=== PATIENT | female | born 1970 | race Caucasian/White ===

== ENCOUNTER 2017-07-04 11:27 | Emergency (ER) | payer SELFPAY ==
[2017-07-04 11:41] VITALS: O2SAT 100
[2017-07-04 12:03] VITALS: RESP 18
--- NOTE | 2017-07-04 12:04 | C.PDOC ---
History Of Present Illness 47-year-old female, PMHx includes Migraines, presents to the emergency department with complaint of headache. Patient states she has been experiencing nausea that is associated with several episodes of non-bloody/non-bilious vomiting and photophobia. Patient reports symptoms are similar to her prior migraines, but worse. She also notes a few episodes of watery non-bloody diarrhea over the past few days. Denies numbness/weakness, sensory changes, facial droop, change in speech, back pain, chest pain, or any other associated symptoms. No other complaints at this time. Time Seen by Provider: 07/04/17 12:03 Chief Complaint (Nursing): Headache History Per: Patient History/Exam Limitations: no limitations Onset/Duration Of Symptoms: Days Current Symptoms Are (Timing): Still Present Severity: Moderate Past Medical History Reviewed: Historical Data, Nursing Documentation, Vital Signs Vital Signs: Last Vital Signs Temp 97.6 F 07/04/17 12:00 Pulse 76 07/04/17 12:00 Resp 18 07/04/17 12:00 BP 111/74 07/04/17 12:00 Pulse Ox 100 07/04/17 16:06 - Medical History PMH: Migraine Family History: States: No Known Family Hx - Social History Hx Alcohol Use: No Hx Substance Use: No Review Of Systems Except As Marked, All Systems Reviewed And Found Negative. Cardiovascular: Negative for: Chest Pain Respiratory: Negative for: Cough, Shortness of Breath Gastrointestinal: Negative for: Nausea, Vomiting Musculoskeletal: Negative for: Neck Pain, Back Pain Skin: Negative for: Rash Neurological: Positive for: Headache. Negative for: Weakness, Numbness, Dizziness Physical Exam - Physical Exam Appears: Non-toxic, No Acute Distress Skin: Normal Color, Warm, Dry, No Rash Head: Atraumatic, Normacephalic Eye(s): bilateral: PERRL, EOMI, Other (Mild photophobia) Nose: Normal Oral Mucosa: Moist Lips: Normal Appearing Neck: Normal ROM, Supple Chest: Symmetrical Cardiovascular: Rhythm Regular, No Murmur Respiratory: Normal Breath Sounds, No Accessory Muscle Use Extremity: Normal ROM, No Deformity, No Swelling Neurological/Psych: Oriented x3, Normal Speech, Normal Cognition, Normal Cranial Nerves, Normal Motor, Normal Sensation, Other (No focal deficit) ED Course And Treatment - Laboratory Results Result Diagrams: 07/04/17 13:10 07/04/17 13:10 O2 Sat by Pulse Oximetry: 100 (RA) Pulse Ox Interpretation: Normal - CT Scan/US CT head Other Rad Studies (CT/US): Read By Radiologist, Radiology Report Reviewed CT/US Interpretation: Accession No. : [id number]. Patient Name / ID : KODY CALDERON / [id number]. Exam Date : 07/04/2017 14:31:23 ( Approved ). Study Comment : Sex / Age : F / 47Y. Creator : Patricia Quesada. Dictator : Henny Prasad MD. Medical Director : Glucose And Syrup Weigher : Henny Prasad MD. Approver2 : Report Date : 07/04/2017 15:03:42. My Comment : . PROCEDURE: CT HEAD WITHOUT CONTRAST. HISTORY: headache/vomiting. COMPARISON: None available. TECHNIQUE: Axial computed tomography images were obtained through the head/brain without intravenous contrast. Radiation dose: Total exam DLP = 839.59 mGy-cm. This CT exam was performed using one or more of the following dose reduction techniques: Automated exposure control, adjustment of the mA and/ or kV according to patient size, and/or use of iterative reconstruction technique. FINDINGS: Mild streak artifact limits evaluation of the brainstem. HEMORRHAGE: No intracranial hemorrhage. BRAIN: No mass effect or edema. The andujar-white matter differentiation appears intact. Please note that MRI with diffusion imaging is more sensitive in the detection of acute ischemic event. VENTRICLES: No hydrocephalus. CALVARIUM: Unremarkable. PARANASAL SINUSES: Mucosal thickening of the ethmoid air cells. The remainder of the visualized paranasal sinuses appear clear. MASTOID AIR CELLS: Unremarkable as visualized. No inflammatory changes. OTHER FINDINGS: None. IMPRESSION: No acute intracranial pathology identified. Additional findings as above. Progress Note: Bloodwork, CT Head, UA and Urine culture ordered and reviewed. Patient treated with Antivert, Reglan, Toradol and Zofran. On re-evaluation, Patient is resting comfortably, is tolerating PO, and no longer has headache. There is no neurologic deficit, photophobia, rash, fever, or nuchal rigidity. Patient was instructed to follow up with physician/clinic in 1-2 days. All questions answered, patient asked to return immediately for any new or worsening symptoms. Disposition - Disposition Referrals: [facility] [Outside] Disposition: HOME/ ROUTINE Disposition Time: 16:28 Condition: IMPROVED Additional Instructions: Follow up in Clinic within1-2 days. Return to ED if feel worse. Instructions: Migraine Headache (DC) Forms: [employer] (P[place]in[place]) - Clinical Impression Clinical Impression: Migraine - Scribe Statement The provider has reviewed the documentation as recorded by the Scribe (Delaney Santos) All medical record entries made by the Scribe were at my direction and personally dictated by me. I have reviewed the chart and agree that the record accurately reflects my personal performance of the history, physical exam, medical decision making, and the department course for this patient. I have also personally directed, reviewed, and agree with the discharge instructions and disposition.
[2017-07-04] MEDS ORDERED: Sodium Chloride 0.9% 1,000 ML IV ONE (13:02)
[2017-07-04 13:19] LABS: BASO % 0.6 % (0.0-2.0); EOS % 0.5 % (0.0-4.0); HEMOGLOBIN 11.5 g/dL (11.0-16.0); LYMPH # 0.7 K/uL (1.0-4.3); LYMPH % 11.5 % (20.0-40.0); MEAN CELL VOLUME 80.4 fL (81.0-99.0); MEAN CORPUSCULAR HEMOGLOBIN 26.4 pg (27.0-31.0); MEAN CORPUSCULAR HGB CONC 32.9 g/dL (33.0-37.0); MEAN PLATELET VOLUME 8.5 fL (7.2-11.7); MONO # 0.2 K/uL (0.0-0.8); MONO % 3.3 % (0.0-10.0); NEUT # 5.4 K/uL (1.8-7.0); NEUT % 84.1 % (50.0-75.0); RBC 4.35 Mil/uL (3.80-5.20); RED CELL DISTRIBUTION WIDTH 15.2 % (11.5-14.5); WHITE BLOOD COUNT 6.4 K/uL (4.8-10.8)
[2017-07-04] MEDS ORDERED: Sodium Chloride 0.9% 1,000 ML IV STA (13:20)
[2017-07-04 13:24] LABS: HCG,QUALITATIVE URINE NEGATIVE (NEGATIVE)
[2017-07-04 13:27] LABS: SQUAMOUS EPITHIAL < 1 /hpf (0-5); URINE AMORPHOUS SEDIMENT RARE /ul (<OCC); URINE BACTERIA OCC (<OCC); URINE BILIRUBIN NEGATIVE (NEGATIVE); URINE BLOOD NEGATIVE (NEGATIVE); URINE CLARITY Hazy (Clear); URINE COLOR Yellow (YELLOW); URINE GLUCOSE (UA) NORMAL (Normal); URINE LEUKOCYTE ESTERASE NEG Leu/uL (Negative); URINE NITRATE NEGATIVE (NEGATIVE); URINE PROTEIN NEGATIVE (NEGATIVE); URINE UROBILINOGEN NORMAL mg/dL (0.2-1.0)
[2017-07-04 13:38] LABS: CALCIUM 9.8 mg/dl (8.6-10.4); GFR AFRICAN-AMERICAN > 60; GFR NON-AFRICAN AMERICAN > 60
[2017-07-04 13:41] LABS: ALB/GLOB RATIO 1.2 (1.0-2.1); ALBUMIN 4.2 g/dL (3.5-5.0); ALT/SGPT 22 U/L (9-52); AST/SGOT 46 U/L (14-36); BLOOD UREA NITROGEN 15 mg/dL (7-17)
[2017-07-04] MEDS ORDERED: Sodium Chloride 0.9% 100 ML ONE (13:43)
[2017-07-04 13:47] LABS: BARBITURATES, UR NEGATIVE (NEGATIVE); BENZODIAZEPINES, UR NEGATIVE (NEGATIVE); OPIATES, UR NEGATIVE (NEGATIVE); PHENCYCLIDINE, UR NEGATIVE (NEGATIVE)
--- NOTE | 2017-07-04 15:14 | CT ---
PROCEDURE: CT HEAD WITHOUT CONTRAST. HISTORY: headache/vomiting COMPARISON: None available. TECHNIQUE: Axial computed tomography images were obtained through the head/brain without intravenous contrast. Radiation dose: Total exam DLP = 839.59 mGy-cm. This CT exam was performed using one or more of the following dose reduction techniques: Automated exposure control, adjustment of the mA and/or kV according to patient size, and/or use of iterative reconstruction technique. FINDINGS: Mild streak artifact limits evaluation of the brainstem. HEMORRHAGE: No intracranial hemorrhage. BRAIN: No mass effect or edema. The andujar-white matter differentiation appears intact. Please note that MRI with diffusion imaging is more sensitive in the detection of acute ischemic event. VENTRICLES: No hydrocephalus. CALVARIUM: Unremarkable. PARANASAL SINUSES: Mucosal thickening of the ethmoid air cells. The remainder of the visualized paranasal sinuses appear clear. MASTOID AIR CELLS: Unremarkable as visualized. No inflammatory changes. OTHER FINDINGS: None. IMPRESSION: No acute intracranial pathology identified. Additional findings as above.
[2017-07-04 17:00] VITALS: TEMP 97.9
[2017-07-04 17:01] VITALS: BP 114/72; PULSE 68
== END 2017-07-04 17:02 | disposition home or self-care (01) ==
LOC: C.ER 11:27
DX: G43.909 Migraine, unspecified, not intractable, without status migrainosus (principal)
CPT/HCPCS: 70450; 80053; 81001; 84703; 85025; 87086; 96361; 96372; 96374; 99285; G0480; J1885; J2765; J7040

== ENCOUNTER 2017-09-15 12:24 | Emergency (ER) | payer SELFPAY ==
[2017-09-15 12:30] VITALS: RESP 18
--- NOTE | 2017-09-15 12:53 | C.PDOC ---
History Of Present Illness 47 year old female presents to the ED for evaluation of nausea, vomiting, diarrhea and migraine which began last night. Patient reports history of similar episode in the past. She was evaluated on 06/2017 for the same. Patient states her symptoms start as diarrhea, progresses to nausea, vomiting with migraine. Patient is unable to take [id number] medications due to nausea and vomiting. Denies fever. NVD, MIGRAINE SINCE LAST NIGHT. PS SIM PRIOR EPISODES, EVAL 06/2017 FOR SAME. PS STARTS DIARRHEA, PROGRESSES TO NV NOW W MIGRAINE. UNABLE TO TAKE OTC MEDS DUE TO NV. NO FEVER. EXAM MOD DIST NONTOXIC HEENT NO PHOTOPHOBIA NECK SUPPLE NEURO INTACT ABD NEG REMAINDER NEG Time Seen by Provider: 09/15/17 12:44 Chief Complaint (Nursing): GI Problem History Per: Patient History/Exam Limitations: no limitations Onset/Duration Of Symptoms: Hrs Current Symptoms Are (Timing): Still Present Additional History Per: Patient Past Medical History Reviewed: Historical Data, Nursing Documentation, Vital Signs Vital Signs: Last Vital Signs Temp 97.7 F 09/15/17 12:27 Pulse 73 09/15/17 13:34 Resp 18 09/15/17 13:34 BP 106/64 09/15/17 13:34 Pulse Ox 100 09/15/17 13:34 - Medical History PMH: Migraine Surgical History: No Surg Hx Family History: States: Unknown Family Hx - Social History Hx Alcohol Use: No Hx Substance Use: No Review Of Systems Gastrointestinal: Positive for: Nausea, Vomiting, Diarrhea Neurological: Positive for: Other (migraine) Physical Exam - Physical Exam Appears: Non-toxic, Other (in moderate distress ) Skin: Normal Color, Warm, Dry Head: Atraumatic, Normacephalic Eye(s): bilateral: Normal Inspection, Other (no photophobia ) Oral Mucosa: Moist Neck: Supple Chest: Symmetrical, No Deformity, No Tenderness Cardiovascular: Rhythm Regular, No Murmur Respiratory: Normal Breath Sounds, No Rales, No Rhonchi, No Wheezing Gastrointestinal/Abdominal: Soft, No Tenderness, No Guarding, No Rebound Extremity: Normal ROM, Capillary Refill (less than 2 seconds ) Neurological/Psych: Oriented x3, Normal Speech, Normal Cognition ED Course And Treatment O2 Sat by Pulse Oximetry: 98 (on RA) Pulse Ox Interpretation: Normal Progress Note: Compazine IVP, Decadron IVP, Imitrex SC, Toradol IVP, Tylenol PO , and IV Fluids administered. Progress - Re-Evaluation Re-evaluation Note: 09/15/17 14:42 ASYMPT NEURO INTACT APPEARS COMFORTABLE REQUESTING DC HOME - Data Reviewed Data Reviewed: Old records Disposition Counseled Patient/Family Regarding: Diagnosis, Need For Followup, Rx Given - Disposition Referrals: YOUR,PMD [Other] Disposition: HOME/ ROUTINE Disposition Time: 14:42 Condition: IMPROVED Prescriptions: Ondansetron [Zofran Odt] 4 mg PO TID PRN #9 odt PRN Reason: Nausea/Vomiting Instructions: Migraine Headache (DC) Forms: [employer] (Irish) - Clinical Impression Clinical Impression: Migraine - Scribe Statement The provider has reviewed the documentation as recorded by the Scribe (Natasha Ervin) Provider Attestation: All medical record entries made by the Scribe were at my direction and personally dictated by me. I have reviewed the chart and agree that the record accurately reflects my personal performance of the history, physical exam, medical decision making, and the department course for this patient. I have also personally directed, reviewed, and agree with the discharge instructions and disposition.
[2017-09-15] MEDS ORDERED: Sodium Chloride 0.9% 1,000 ML IV ONE (12:55)
[2017-09-15] MEDS ORDERED: Sodium Chloride 0.9% 1,000 ML ONE (13:17)
[2017-09-15 15:08] VITALS: BP 103/50; PULSE 64; TEMP 98.2; O2SAT 100
== END 2017-09-15 15:12 | disposition home or self-care (01) ==
LOC: C.ER 12:24
DX: G43.909 Migraine, unspecified, not intractable, without status migrainosus (principal)
CPT/HCPCS: 96361; 96372; 96374; 96375; 99285; J0780; J1100; J1885; J3030; J7040